=== PATIENT | female | born 1970 | race Caucasian/White ===

== ENCOUNTER 2019-09-24 16:15 | Emergency (ER) | payer BC ==
[~2019-09-24] VITALS: Ht 175.2 cm; Wt 95.3 kg
[2019-09-24] MEDS ORDERED: Motrin,Rufen800 MG PO (19:41)
== END 2019-09-24 19:42 | disposition home or self-care (01) ==
LOC: ED 16:15
DX: S96.912A Strain of unspecified muscle and tendon at ankle and foot level, left foot, initial encounter (principal); X58.XXXA Exposure to other specified factors, initial encounter; Y93.89 Activity, other specified; Y92.89 Other specified places as the place of occurrence of the external cause; Y99.8 Other external cause status